=== PATIENT | male | born 1990 | race African-American/Black ===

== ENCOUNTER 2020-12-29 09:59 | Emergency (ER) | payer BC ==
[2020-12-29 10:20] VITALS: BP 122/59; PULSE 57
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
--- NOTE | 2020-12-29 11:07 | CR ---
Left wrist: 4 views of the left wrist were obtained. Comparison: No prior study is available. Joint spaces are maintained. No fracture, dislocation or other bony abnormality is appreciated. Impression: 1. Nothing acute is seen on left wrist exam. Diagnostic code #1
== END 2020-12-29 11:20 | disposition home or self-care (01) ==
LOC: JD.ED 09:59
DX: M77.9 Enthesopathy, unspecified (principal)
CPT/HCPCS: 73110-26-LT; 73110-LT; 99283